=== PATIENT | male | born 1950 | race Caucasian/White ===

== ENCOUNTER 2024-08-21 19:34 | Inpatient (IN) | payer MEDICARE ==
--- NOTE | 2024-08-21 20:19 | ED ---
Abdominal Pain HPI - General Source: patient, RN notes reviewed Mode of arrival: ambulatory Limitations: no limitations - History of Present Illness MD Complaint: abdominal pain Onset/Timin -: hour(s) Time: 15:00 Location: periumbilical Severity scale (1-10): 7 Quality: stabbing, sharp Consistency: intermittent Improves With: nothing Worsens With: nothing Associated Symptoms: constipation <Cale Swain - Last Filed: 08/21/24 20:16> <Philippe Dao - Last Filed: 08/26/24 09:32> - General Chief Complaint: Abdominal Pain Stated Complaint: adb pain Time Seen by Provider: 08/21/24 19:50 - History of Present Illness Initial Comments: Quick note: This is a 73-year-old male with history of colon cancer presenting with sharp, intermittent abdominal pain (7/10) since 1500 today. Patient states pain appears to be worsening since it first started. States intermittent pain ranges from 3-7/10. Endorses some constipation with mix of diarrhea and normal stool yesterday. Denies fever, chills, chest pain, dyspnea, nausea/vomiting, hematochezia, dizziness. (Cale Swain) - Related Data Previous Rx's Medication Instructions Recorded Atorvastatin [Lipitor] 20 mg PO HS 30 Days #30 tab 10/07/22 Pantoprazole Sodium [Protonix] 40 mg PO DAILY #30 tab 08/22/24 Allergies Allergy/AdvReac Type Severity Reaction Status Date / Time No Known Allergies Allergy Verified 08/22/24 09:13 Review of Systems ROS Other: All systems not noted in ROS Statement are negative. <Cale wSain - Last Filed: 08/21/24 20:16> ROS Other: All systems not noted in ROS Statement are negative. <Philippe Dao - Last Filed: 08/26/24 09:32> ROS Statement: Those systems with pertinent positive or pertinent negative responses have been documented in the HPI. Past Medical History Past Medical History: Cancer, Hyperlipidemia Additional Past Medical History / Comment(s): colon CA History of Any Multi-Drug Resistant Organisms: None Reported Past Surgical History: Orthopedic Surgery Additional Past Surgical History / Comment(s): herina repair Past Psychological History: No Psychological Hx Reported Smoking Status: Former smoker Past Alcohol Use History: None Reported Past Drug Use History: None Reported <Cale Swain - Last Filed: 08/21/24 20:16> General Exam Limitations: no limitations <BrynnCale - Last Filed: 08/21/24 20:16> Limitations: no limitations General appearance: alert, in no apparent distress Head exam: Present: atraumatic, normocephalic Eye exam: Present: normal appearance. Absent: scleral icterus, conjunctival injection ENT exam: Present: normal oropharynx Neck exam: Present: normal inspection Respiratory exam: Present: normal lung sounds bilaterally. Absent: respiratory distress, wheezes, rales, rhonchi, stridor, accessory muscle use Cardiovascular Exam: Present: regular rate, normal rhythm, normal heart sounds. Absent: systolic murmur, diastolic murmur, rubs, gallop GI/Abdominal exam: Present: soft, tenderness (Mild lower abdominal tenderness. No rebound or guarding.). Absent: distended, guarding, rebound, rigid, organomegaly, mass, pulsatile mass, hernia Extremities exam: Present: normal inspection, normal capillary refill. Absent: pedal edema, calf tenderness Back exam: Present: normal inspection. Absent: CVA tenderness (R), CVA tenderness (L) Neurological exam: Present: alert Skin exam: Present: warm, dry, intact, normal color. Absent: rash <Philippe Dao - Last Filed: 08/26/24 09:32> - General Exam Comments Initial Comments: Visual Physical Exam Vital signs reviewed General: Well-appearing, nontoxic, no acute distress. Head: Normocephalic, atraumatic Eyes: PERRLA, EOMI ENT: Airway patent Chest: Nonlabored breathing Skin: No visual rash, normal skin tone Neuro: Alert and oriented 3 Musculoskeletal: No gross abnormalities (Cale Swain) Course Vital Signs 08/21/24 08/21/24 08/21/24 19:38 21:57 23:45 Temperature 97.5 F L Pulse Rate 69 69 68 Respiratory 18 16 16 Rate Blood Pressure 169/97 172/97 162/96 O2 Sat by Pulse 99 98 98 Oximetry 08/22/24 08/22/24 08/22/24 03:00 04:13 05:40 Temperature Pulse Rate 78 83 Respiratory 16 16 Rate Blood Pressure 148/80 148/80 O2 Sat by Pulse 95 94 L Oximetry 08/22/24 08/22/24 08/22/24 06:31 10:59 15:34 Temperature 98.1 F 98.3 F Pulse Rate 80 69 67 Respiratory 14 18 16 Rate Blood Pressure 148/80 114/74 139/95 O2 Sat by Pulse 94 L 97 99 Oximetry Medical Decision Making <Cale Swain - Last Filed: 08/21/24 20:16> - Lab Data Result diagrams: 08/21/24 21:07 08/21/24 21:07 <Philippe Dao - Last Filed: 08/26/24 09:32> - Medical Decision Making I completed the quick note portion of this chart signed CAHD Sanchez (Cale Swain) The patient had CT scan of the abdomen that I interpreted as showing multiple dilated loops of bowel consistent with bowel obstruction. No free air Was pt. sent in by a medical professional or institution (KIMBERLY Garg, WELL SITE DRILLING ENGINEER, urgent care, hospital, or fpc...) When possible be specific @ -[No] Did you speak to anyone other than the patient for history (EMS, parent, family, police, friend...)? What history was obtained from this source @ -[No] Did you review nursing and triage notes (agree or disagree)? Why? @ -[I reviewed and agree with nursing and triage notes] Were old charts reviewed (outside hosp., previous admission, EMS record, old EKG, old radiological studies, urgent care reports/EKG's, fpc records)? Report findings @ -[No old charts were reviewed] Differential Diagnosis (chest pain, altered mental status, abdominal pain women, abdominal pain men, vaginal bleeding, weakness, fever, dyspnea, syncope, headache, dizziness, GI bleed, back pain, seizure, CVA, palpatations, mental health, musculoskeletal)? @ -[Differential Abdominal Pain Men: Appendicitis, cholecystitis, diverticulosis, ischemic bowel, pancreatitis, hepatitis, UTI, gastroenteritis, AAA, incarcerated hernia, bowel obstruction, constipation, inflammatory bowel, hepatitis, peptic ulcer disease, splenic infarction, perforated viscus, testicular torsion, this is not meant to be an all-inclusive list EKG interpreted by me (3pts min.). @ -[As above] X-rays interpreted by me (1pt min.). @ -[None done] CT interpreted by me (1pt min.). @ -[I interpreted as above U/S interpreted by me (1pt. min.). @ -[None done] What testing was considered but not performed or refused? (CT, X-rays, U/S, labs)? Why? @ -[None] What meds were considered but not given or refused? Why? @ -[None] Did you discuss the management of the patient with other professionals (professionals i.e. , PA, WELL SITE DRILLING ENGINEER, lab, RT, psych nurse, certified social workers in health care, coremaker apprentice, teacher, founder and chief executive officer, watch caser)? Give summary @ -[No] Was smoking cessation discussed for >3mins.? @ -[No] Was critical care preformed (if so, how long)? @ -[No] Were there social determinants of health that impacted care today? How? (Homelessness, low income, unemployed, alcoholism, drug addiction, transportation, low edu. Level, literacy, decrease access to med. care, fpc, rehab)? @ -[No] Was there de-escalation of care discussed even if they declined (Discuss DNR or withdrawal of care, Hospice)? DNR status @ -[No] What co-morbidities impacted this encounter? (DM, HTN, Smoking, COPD, CAD, Cancer, CVA, ARF, Chemo, Hep., AIDS, mental health diagnosis, sleep apnea, morbid obesity)? @ -[History of colon cancer with resection Was patient admitted / discharged? Hospital course, mention meds given and route, prescriptions, significant lab abnormalities, going to OR and other pertinent info. @ -[Patient is 73-year-old man with history of previous colon cancer status post resection. He presents with abdominal pain and CT does appear to have bowel obstruction. The patient will be admitted to have surgical consultation and is maintained n.p.o. Undiagnosed new problem with uncertain prognosis? @ -[No] Drug Therapy requiring intensive monitoring for toxicity (Heparin, Nitro, Insulin, Cardizem)? @ -[No] Were any procedures done? @ -[No] Diagnosis/symptom? @ -[Abdominal pain Acute bowel obstruction Acute, or Chronic, or Acute on Chronic? @ -Acute Uncomplicated (without systemic symptoms) or Complicated (systemic symptoms)? @ -[Uncomplicated Side effects of treatment? @ -[No] Exacerbation, Progression, or Severe Exacerbation? @ -[No] Poses a threat to life or bodily function? How? (Chest pain, [place], [place], pneumonia, PE, COPD, DKA, ARF, appy, cholecystitis, CVA, Diverticulitis, Homicidal, Suicidal, threat to staff... and all critical care pts) @ -[Yes All treatments are based on ideal body weight as in ED triage (Philippe Dao) - Lab Data Lab Results 08/21/24 08/21/24 08/21/24 Range/Units 21:07 21:07 21:07 WBC 7.9 (3.8-10.6) k/uL RBC 5.02 (4.30-5.90) m/uL Hgb 15.1 (13.0-17.5) gm/dL Hct 45.7 (39.0-53.0) % MCV 91.1 (80.0-100.0) fL MCH 30.1 (25.0-35.0) pg MCHC 33.0 (31.0-37.0) g/dL RDW 12.6 (11.5-15.5) % Plt Count 275 (150-450) k/uL MPV 7.3 Neutrophils % 61 % Lymphocytes % 29 % Monocytes % 5 % Eosinophils % 3 % Basophils % 1 % Neutrophils # 4.8 (1.3-7.7) k/uL Lymphocytes # 2.2 (1.0-4.8) k/uL Monocytes # 0.4 (0-1.0) k/uL Eosinophils # 0.2 (0-0.7) k/uL Basophils # 0.1 (0-0.2) k/uL Sodium 140 (137-145) mmol/L Potassium 4.5 (3.5-5.1) mmol/L Chloride 105 (98-107) mmol/L Carbon Dioxide 28 (22-30) mmol/L Anion Gap 7 mmol/L BUN 14 (9-20) mg/dL Creatinine 0.84 (0.66-1.25) mg/dL Est GFR (CKD-EPI)AfAm >90 (>60 ml/min/1.73 sqM) Est GFR (CKD-EPI)NonAf 86 (>60 ml/min/1.73 sqM) Glucose 91 (74-99) mg/dL Plasma Lactic Acid Jean Marie 1.1 (0.7-2.0) mmol/L Calcium 9.4 (8.4-10.2) mg/dL Total Bilirubin 0.3 (0.2-1.3) mg/dL AST 23 (17-59) U/L ALT 32 (4-49) U/L Alkaline Phosphatase 86 (38-126) U/L Total Protein 6.7 (6.3-8.2) g/dL Albumin 4.5 (3.5-5.0) g/dL Amylase 90 (30-110) U/L Lipase 191 (23-300) U/L Urine Color Urine Appearance (Clear) Urine pH (5.0-8.0) Ur Specific [place] (1.001-1.035) Urine Protein (Negative) Urine Glucose (UA) (Negative) Urine Ketones (Negative) Urine Blood (Negative) Urine Nitrite (Negative) Urine Bilirubin (Negative) Urine Urobilinogen (<2.0) mg/dL Ur Leukocyte Esterase (Negative) 08/21/24 Range/Units 22:49 WBC (3.8-10.6) k/uL RBC (4.30-5.90) m/uL Hgb (13.0-17.5) gm/dL Hct (39.0-53.0) % MCV (80.0-100.0) fL MCH (25.0-35.0) pg MCHC (31.0-37.0) g/dL RDW (11.5-15.5) % Plt Count (150-450) k/uL MPV Neutrophils % % Lymphocytes % % Monocytes % % Eosinophils % % Basophils % % Neutrophils # (1.3-7.7) k/uL Lymphocytes # (1.0-4.8) k/uL Monocytes # (0-1.0) k/uL Eosinophils # (0-0.7) k/uL Basophils # (0-0.2) k/uL Sodium (137-145) mmol/L Potassium (3.5-5.1) mmol/L Chloride (98-107) mmol/L Carbon Dioxide (22-30) mmol/L Anion Gap mmol/L BUN (9-20) mg/dL Creatinine (0.66-1.25) mg/dL Est GFR (CKD-EPI)AfAm (>60 ml/min/1.73 sqM) Est GFR (CKD-EPI)NonAf (>60 ml/min/1.73 sqM) Glucose (74-99) mg/dL Plasma Lactic Acid Jean Marie (0.7-2.0) mmol/L Calcium (8.4-10.2) mg/dL Total Bilirubin (0.2-1.3) mg/dL AST (17-59) U/L ALT (4-49) U/L Alkaline Phosphatase (38-126) U/L Total Protein (6.3-8.2) g/dL Albumin (3.5-5.0) g/dL Amylase (30-110) U/L Lipase (23-300) U/L Urine Color Light Yellow Urine Appearance Clear (Clear) Urine pH 7.0 (5.0-8.0) Ur Specific [place] >1.050 H (1.001-1.035) Urine Protein Negative (Negative) Urine Glucose (UA) Negative (Negative) Urine Ketones Negative (Negative) Urine Blood Negative (Negative) Urine Nitrite Negative (Negative) Urine Bilirubin Negative (Negative) Urine Urobilinogen <2.0 (<2.0) mg/dL Ur Leukocyte Esterase Negative (Negative) Disposition <Cale Swain - Last Filed: 08/21/24 20:16> Is patient prescribed a controlled substance at d/c from ED?: No <Philippe Dao - Last Filed: 08/26/24 09:32> Clinical Impression: Abdominal pain, Bowel obstruction Disposition: ADMITTED IP TO THIS HOSP Condition: Fair
[2024-08-21 21:12] LABS: Basophils # (A) 0.1 k/uL (0-0.2); Basophils % (A) 1 %; Eosinophils # (A) 0.2 k/uL (0-0.7); Eosinophils % (A) 3 %; HCT 45.7 % (39.0-53.0); HGB 15.1 gm/dL (13.0-17.5); Lymphocytes # (A) 2.2 k/uL (1.0-4.8); Lymphocytes % (A) 29 %; MCH 30.1 pg (25.0-35.0); MCV 91.1 fL (80.0-100.0); Mean Platelet Volume 7.3; Monocytes # (A) 0.4 k/uL (0-1.0); Monocytes % (A) 5 %; Neutrophils # (A) 4.8 k/uL (1.3-7.7); Neutrophils % (A) 61 %; Platelet Count 275 k/uL (150-450); RBC 5.02 m/uL (4.30-5.90); RDW 12.6 % (11.5-15.5); WBC 7.9 k/uL (3.8-10.6)
[2024-08-21 21:28] LABS: ALT 32 U/L (4-49); AST 23 U/L (17-59); African American GFR (CKD) >90 (>60 ml/min/1.73 sqM); Albumin 4.5 g/dL (3.5-5.0); Alkaline Phosphatase 86 U/L (38-126); Amylase 90 U/L (30-110); Anion Gap 7 mmol/L; Blood Urea Nitrogen 14 mg/dL (9-20); Calcium 9.4 mg/dL (8.4-10.2); Carbon Dioxide 28 mmol/L (22-30); Chloride 105 mmol/L (98-107); Glucose 91 mg/dL (74-99); Lipase 191 U/L (23-300); Non-African American GFR(CKD) 86 (>60 ml/min/1.73 sqM); Potassium 4.5 mmol/L (3.5-5.1); Sodium 140 mmol/L (137-145); Total Bilirubin 0.3 mg/dL (0.2-1.3); Total Protein 6.7 g/dL (6.3-8.2)
[2024-08-21] MEDS: SODIUM CHLORIDE 0.9% 1,000 ML IV STA (21:54)
--- NOTE | 2024-08-21 22:08 | CT ---
EXAMINATION TYPE: CT abdomen pelvis w con DATE OF EXAM: 08/21/2024 9:52 PM COMPARISON: None available. CLINICAL INDICATION: Male, 73 years old with history of Abdominal pain, history of colon CA; Abdomina l pain TECHNIQUE: Axial CT abdomen pelvis w con;Sagittal and coronal reformats were created on a separate w orkstation. Contrast used:100ml mL of Isovue 300 with IV Contrast, (none if empty) Oral contrast used: without Oral Contrast (none if empty) CT DLP: 1067.9 mGycm, Automated exposure control for dose reduction was used. FINDINGS: LOWER CHEST: No acute pathology in the partially visualized lower lungs. ABDOMEN Simple cyst in the right hepatic lobe. Liver otherwise unremarkable. Portal veins appear patent. Gall bladder unremarkable. Spleen normal in size and morphology. No suspicious treatment of a nodule. Kidn eys enhance symmetrically bilaterally. Small bilateral simple renal cysts and additional subcentimete r hypodense lesions which are too small accurately characterize. No evidence of nephrolithiasis or de luna spicious enhancing renal lesion. No abnormal biliary ductal dilatation. Pancreas unremarkable. Calcified atherosclerotic disease of the abdominal aorta without aneurysmal dilatation. Several origi n of the common hepatic artery off the aorta. No pathologic retroperitoneal lymphadenopathy. Small hiatal hernia and fluid distention of the distal esophagus just above reflux. Previous sigmoidectomy noted. Colonic structures relatively decompressed. There are multiple dilated small bowel loops measuring up to 5.0 cm in diameter, most pronounced in the region of previous small bowel resection. Possible transition point identified in the lower mid abdomen. There is possible wo rld appearance of the mesentery in the mid/right lower quadrant which could reflect developing volvul us or internal hernia. No evidence of free air or convincing evidence of pneumatosis. Urinary bladder unremarkable. Multilevel thoracic and lumbar spine degenerative changes. Bilateral inguinal hernia as containing fa t and fluid. IMPRESSION: 1. Multiple dilated small bowel loops measuring up to 5.0 cm in diameter with possible transition po int in the lower abdomen. Findings are concerning for small bowel obstruction. No evidence of free ai r/pneumoperitoneum or pneumatosis at this time. 2. Nonacute findings as above. [facility], , 08/21/2024 10:06 PM
[2024-08-21] MEDS ORDERED: ACETAMINOPHEN TAB 325 MG TAB PO PRN (23:02)
[2024-08-21] MEDS ORDERED: ONDANSETRON 4 MG/2 ML VIAL IVP PRN (23:02)
[2024-08-21] MEDS ORDERED: NALOXONE 0.4 MG/ML 1 ML VIAL IV PRN (23:02)
[2024-08-21 23:29] LABS: Appearance,Urine Clear (Clear); Bilirubin,Urine Negative (Negative); Blood,Urine Negative (Negative); Color,Urine Light Yellow; Glucose,Urine (UA) Negative (Negative); Ketones,Urine Negative (Negative); Leukocyte Esterase,Urine Negative (Negative); Nitrite,Urine Negative (Negative); Protein,Urine Negative (Negative); Urobilinogen,Urine <2.0 mg/dL (<2.0)
[2024-08-21 23:39] LABS: Specific Gravity,Urine >1.050 (1.001-1.035)
[2024-08-21] MEDS: SODIUM CHLORIDE 0.9% 1,000 ML IV SCH (23:39)
[2024-08-21] MEDS ORDERED: MORPHINE SULFATE 4 MG/ML SYRINGE IV PRN (23:45)
[2024-08-22] MEDS: MORPHINE SULFATE 4 MG/ML SYRINGE IV STA (00:09)
--- NOTE | 2024-08-22 04:36 | P.CON ---
Consult Note - . Consult date: 08/22/24 Assessment/Plan:: This is a 73-year-old male with history of colon cancer presenting with sharp, intermittent abdominal pain since 1500 yesterday/. Patient states pain appears to be worsening since it first started. States intermittent pain. Endorses s ome constipation with mix of diarrhea and normal stool yesterday. Denies fever, chills, chest pain, dyspnea, nausea/vomiting, hematochezia, dizziness. CT-AP shows evidence of bowel obstruction with transition point. Review of Systems ROS Other: All systems not noted in ROS Statement are negative. Past Medical History Past Medical History: Cancer, Hyperlipidemia Additional Past Medical History / Comment(s): colon CA History of Any Multi-Drug Resistant Organisms: None Reported Past Surgical History: Orthopedic Surgery Additional Past Surgical History / Comment(s): herina repair Past Psychological History: No Psychological Hx Reported Smoking Status: Former smoker Past Alcohol Use History: None Reported Past Drug Use History: None Reported General Exam Limitations: no limitations General appearance: alert, in no apparent distress Head exam: Present: atraumatic, normocephalic Eye exam: Present: normal appearance. Absent: scleral icterus, conjunctival injection ENT exam: Present: normal oropharynx Neck exam: Present: normal inspection Respiratory exam: Present: normal lung sounds bilaterally. Absent: respiratory distress, wheezes, rales, rhonchi, stridor, accessory muscle use Cardiovascular Exam: Present: regular rate, normal rhythm, normal heart sounds. Absent: systolic murmur, diastolic murmur, rubs, gallop GI/Abdominal exam: Present: soft, tenderness (Mild lower abdominal tenderness. No rebound or guarding.). Absent: distended, guarding, rebound, rigid, organomegaly, mass, pulsatile mass, hernia Extremities exam: Present: normal inspection, normal capillary refill. Absent: pedal edema, calf tenderness Back exam: Present: normal inspection. Absent: CVA tenderness (R), CVA tenderness (L) Neurological exam: Present: alert Skin exam: Present: warm, dry, intact, normal color. Absent: rash 73 year old male with SBO -imaging reviewed -NGT-LIS -NPO -IV fluids -No acute surgical intervention at this time, will follow closely Macario Chatman [facility] [phone]
[2024-08-22] MEDS: PANTOPRAZOLE 40 MG/10 ML VIAL IV SCH (11:02)
[2024-08-22] MEDS: ASPIRIN 81 MG PO SCH (11:02)
[2024-08-22 15:37] VITALS: RESP 16; TEMP 98.3
[2024-08-22 18:19] VITALS: BP 158/96; PULSE 73
[2024-08-22] MEDS ORDERED: ATORVASTATIN 20 MG TAB PO SCH (21:00)
--- NOTE | 2024-08-24 09:09 | HP ---
HISTORY AND PHYSICAL This is a combined history and physical and discharge summary. CHIEF COMPLAINT: Abdominal pain. HISTORY OF PRESENT ILLNESS: This is a 73-year-old gentleman with a past medical history of hyperlipidemia, history of colon cancer, who is admitted with abdominal pain. The possibility of partial small bowel versus small bowel obstruction was considered. There was apparently a transition point. Dr. Chatman did not recommend any surgical evaluation from Surgery, but however, the patient was able to move the bowels multiple times and the patient was extremely keen on going home and the patient wanted to go home at this time, and Dr. Zhu got in touch with Dr. Chatman and the patient is cleared for discharge. There is no history of chills, fever, or rigors. PAST MEDICAL HISTORY: Colon cancer, hyperlipidemia. Rest of the history in chart is also reviewed. HOME MEDICATIONS: Reviewed include Lipitor. ALLERGIES: None. FAMILY HISTORY: No history of heart disease or strokes in the family. SOCIAL HISTORY: No history of current smoking or alcohol. REVIEW OF SYSTEMS: Fourteen-point review is negative except as mentioned earlier. PHYSICAL EXAM: VITAL SIGNS: Pulse 67, blood pressure 130/90, respirations 16. HEENT: Conjunctivae normal. NECK: No JVD. CARDIOVASCULAR: S1, S2. RESPIRATIONS: Diminished at the bases. ABDOMEN: Soft, nontender. No guarding. No rigidity. No masses palpable. Bowel sounds present. No ascites. LEGS: No edema. NERVOUS SYSTEM: Nonfocal. SKIN: No ulcer, rash, bleeding. JOINTS: No active deforming arthropathy. LABORATORY DATA: CBC reviewed, within normal limits. ASSESSMENT: 1. Abdominal distention, possibly ileus versus small-bowel obstruction. Patient improved clinically significantly. 2. History of colon cancer. 3. Hyperlipidemia. 4. Remote history of nicotine dependence. RECOMMENDATIONS: This 73-year-old gentleman presented with abdominal discomfort. He is able to move the bowels at this time. The patient had possibly partial small-bowel obstruction versus ileus and Dr. Chatman cleared the patient for discharge. The patient was discharged, to recommend to continue the home medications, take a course of Protonix, and also follow with the Primary and Surgery as recommended. Once again, the patient was discharged in a stable condition with guarded prognosis. As mentioned, once again, the patient is extremely keen on going home at this time. MMODL / IJN: [id number] /
== END 2024-08-22 18:16 | disposition home or self-care (01) | DRG 390 ==
LOC: EC 19:34 → 4SSUR 23:02 → 5NMEDONC 23:55
PROVIDERS: ADMIT Hospitalist; ATTEND Hospitalist
DX: K56.600 Partial intestinal obstruction, unspecified as to cause (principal); K56.7 Ileus, unspecified; E78.5 Hyperlipidemia, unspecified; Z87.891 Personal history of nicotine dependence; Z85.038 Personal history of other malignant neoplasm of large intestine; Z79.899 Other long term (current) drug therapy
CPT/HCPCS: 36415; 74177; 80053; 81003; 82150; 83605; 83690; 85025; 96361; 96374; 96375; 99285

== ENCOUNTER → 2025-02-10 | Outpatient (CLI) | payer MEDICARE ==
[2025-02-10 14:44] LABS: ALT 28 U/L (4-49); AST 25 U/L (17-59); African American GFR (CKD) >90 (>60 ml/min/1.73 sqM); Albumin 4.4 g/dL (3.5-5.0); Albumin/Globulin Ratio 1.9; Alkaline Phosphatase 82 U/L (38-126); Anion Gap 9 mmol/L; Blood Urea Nitrogen 12 mg/dL (9-20); Calcium 9.7 mg/dL (8.4-10.2); Carbon Dioxide 28 mmol/L (22-30); Chloride 101 mmol/L (98-107); Globulin 2.3 g/dL; Glucose 90 mg/dL (74-99); Non-African American GFR(CKD) 88 (>60 ml/min/1.73 sqM); Potassium 4.6 mmol/L (3.5-5.1); Sodium 138 mmol/L (137-145); Total Bilirubin 0.6 mg/dL (0.2-1.3); Total Protein 6.7 g/dL (6.3-8.2)
[2025-02-10 20:57] LABS: Chol/HDL Ratio 2.34 Ratio; VLDL Calculation 10.66 mg/dL (5.00-40.00)
== END | disposition home or self-care (01) ==
LOC: LABWHC1 12:58
PROVIDERS: ATTEND Internal Medicine Clinical Cardiac Electrophysiology
DX: E78.5 Hyperlipidemia, unspecified (principal); I51.4 Myocarditis, unspecified
CPT/HCPCS: 36415; 80053; 80061; 83036